=== PATIENT | male | born 1960 | race Caucasian/White ===

== ENCOUNTER → 2017-09-02 | Outpatient (CLI) | payer MEDICARE ==
[2017-09-02] MEDS: ZOLPIDEM 5 MG TABLET. PO (23:00)
[2017-09-03] MEDS: OXYMETAZOLINE 0.05% NASAL SPRAY 30ML BOTTLE. NS (01:45)
== END | disposition home or self-care (01) ==
LOC: SLPLAB 18:22
DX: G47.33 Obstructive sleep apnea (adult) (pediatric) (principal)
CPT/HCPCS: 95810